=== PATIENT | female | born 1950 | race Caucasian/White ===

== ENCOUNTER 2022-11-07 13:09 | Outpatient (CLI) | payer MEDICARE, MEDICAID ==
[2022-11-07 15:03] LABS: BASOPHILS % (AUTO) 0.3 % (0-1); EOSINOPHILS # (AUTO) 0.1 X10'3 (0-0.9); EOSINOPHILS % (AUTO) 0.7 % (0-6); LYMPHOCYTES # (AUTO) 1.9 X10'3 (1.1-4.8); LYMPHOCYTES % (AUTO) 24.2 % (21-51); MEAN CORPUSCULAR HEMOGLOBIN 31.8 PG (27.0-31.0); MEAN CORPUSCULAR HGB CONC 33.4 g/dL (33.0-36.5); MEAN CORPUSCULAR VOLUME 95.1 FL (78-98); MEAN PLATELET VOLUME 6.6 FL (7.4-10.4); MONOCYTES # (AUTO) 0.7 X10'3 (0-0.9); MONOCYTES % (AUTO) 9.1 % (2-12); NEUTROPHILS # (AUTO) 5.2 X10'3 (1.8-7.7); NEUTROPHILS % (AUTO) 65.7 % (42-75); PRE OP HEMATOCRIT 41.7 % (35.0-45.0); PRE OP HEMOGLOBIN 13.9 g/dL (12.0-16.0); PRE OP PLATELET COUNT 268 X10'3 (140-440); RED BLOOD COUNT 4.38 X10'6 (4.20-5.60); RED CELL DISTRIBUTION WIDTH 14.2 % (11.5-14.5)
[2022-11-07 15:14] LABS: ALBUMIN 4.2 G/DL (3.4-5.0); ALBUMIN/GLOBULIN RATIO 1.1 (1.1-1.5); ALKALINE PHOSPHATASE 86 IU/L (46-116); BLOOD UREA NITROGEN 11 MG/DL (7-18); BUN/CREATININE RATIO 17.7 (10.0-20.0); CHLORIDE 97 MMOL/L (99-107); CREATININE 0.62 MG/DL (0.40-0.90); PRE OP ALT 22 U/L (30-65); PRE OP ANION GAP 14 (8-16); PRE OP AST 28 U/L (10-37); PRE OP BILIRUB, TOTAL 0.4 MG/DL (0.0-1.0); PRE OP GLUCOSE 82 MG/DL (70-104); PRE OP POTASSIUM 4.2 MMOL/L (3.4-5.1); PRE OP SODIUM 137 MMOL/L (135-145); TOTAL CARBON DIOXIDE 25.9 MMOL/L (24-32); TOTAL PROTEIN 8.1 G/DL (6.4-8.2); eGFR > 90 ML/MIN
[2022-11-07] MEDS ORDERED: TRAM50TA2 PO (15:47)
[2022-11-07] MEDS ORDERED: LORA-268 PO (15:47)
[2022-11-07] MEDS ORDERED: GABA300C PO (15:47)
[2022-11-07] MEDS ORDERED: METO-384 PO (15:47)
== END 2022-11-07 23:59 | disposition home or self-care (01) ==
LOC: LAB 13:09 → EDSTATUS 11-09 13:15
PROVIDERS: ATTEND Orthopaedic Surgery
DX: S42.202A Unspecified fracture of upper end of left humerus, initial encounter for closed fracture (principal); M25.512 Pain in left shoulder; X58.XXXA Exposure to other specified factors, initial encounter; Y93.89 Activity, other specified; Y92.89 Other specified places as the place of occurrence of the external cause; Y99.8 Other external cause status
CPT/HCPCS: 36415; 71046; 80053; 85025; 86885; 86900; 86901; 87081

== ENCOUNTER 2023-04-05 15:48 | Emergency (ER) | payer MEDICARE, MEDICAID ==
[~2023-04-05] VITALS: Ht 152.4 cm; Wt 77.3 kg
[~2023-04-05 15:48] MED LIST: GABA300C PO; LORA-268 PO; METO-384 PO; TRAM50TA2 PO
[2023-04-05 18:22] VITALS: TEMP 98.4
[2023-04-05] MEDS ORDERED: normal saline 1000ml 1,000 ML IV ONE ×2 (18:40)
[2023-04-05 19:01] LABS: BASOPHILS % (AUTO) 0.6 % (0-1); EOSINOPHILS % (AUTO) 0.5 % (0-6); HEMATOCRIT 37.4 % (35.0-45.0); HEMOGLOBIN 12.7 g/dl (12.0-16.0); LYMPHOCYTES # (AUTO) 2.2 X10'3 (1.1-4.8); LYMPHOCYTES % (AUTO) 26.8 % (21-51); MEAN CORPUSCULAR HEMOGLOBIN 31.7 PG (27.0-31.0); MEAN CORPUSCULAR HGB CONC 33.9 g/dL (33.0-36.5); MEAN CORPUSCULAR VOLUME 93.6 FL (78-98); MEAN PLATELET VOLUME 6.5 FL (7.4-10.4); MONOCYTES # (AUTO) 0.4 X10'3 (0-0.9); MONOCYTES % (AUTO) 5.4 % (2-12); NEUTROPHILS # (AUTO) 5.4 X10'3 (1.8-7.7); NEUTROPHILS % (AUTO) 66.7 % (42-75); PLATELET COUNT 229 X10'3 (140-440); RED CELL DISTRIBUTION WIDTH 14.7 % (11.5-14.5); WHITE BLOOD COUNT 8.1 X10'3 (4.5-11.0)
[2023-04-05 19:13] LABS: ALANINE AMINOTRANSFERASE 48 U/L (12-78); ALBUMIN 3.4 G/DL (3.4-5.0); ALKALINE PHOSPHATASE 107 IU/L (46-116); ANION GAP 13 (8-16); ASPARTATE AMINO TRANSFERASE 67 U/L (10-37); BILIRUBIN,TOTAL 0.3 MG/DL (0.1-1.0); BLOOD UREA NITROGEN 4 MG/DL (7-18); BUN/CREATININE RATIO 7.1 (10.0-20.0); CALCIUM 8.7 MG/DL (8.5-10.1); CHLORIDE 101 MMOL/L (99-107); CREATININE 0.56 MG/DL (0.40-0.90); GLUCOSE 75 MG/DL (70-104); SODIUM 139 MMOL/L (135-145); TOTAL CARBON DIOXIDE 24.9 MMOL/L (24-32); TOTAL PROTEIN 6.8 G/DL (6.4-8.2); eCRCL 65 ML/MIN; eGFR > 90 ML/MIN
[2023-04-05] MEDS ORDERED: morphine 10mg/ml inj. IV ONE (19:25)
[2023-04-05 21:56] VITALS: BP 147/75; PULSE 99; RESP 18; O2SAT 93
== END 2023-04-05 22:06 | disposition home or self-care (01) ==
LOC: ER 15:48
DX: F10.129 Alcohol abuse with intoxication, unspecified (principal); I10 Essential (primary) hypertension; K21.9 Gastro-esophageal reflux disease without esophagitis; G89.29 Other chronic pain; Z79.899 Other long term (current) drug therapy; Y90.9 Presence of alcohol in blood, level not specified
CPT/HCPCS: 36415; 80053; 85025; 96360; 99284; J7030

== ENCOUNTER → 2024-07-24 | Outpatient (CLI) | payer MEDICARE, MEDICAID ==
[~2024-07-24] MED LIST changes: +ASPI-1071 PO; +FAMO20TA8 PO; +ROSU20TA98 PO
--- NOTE | 2024-07-24 13:43 | RADIOLOGY REPORT ---
CLINICAL INDICATION: 73 years old, Female; PAIN IN LEFT SHOULDER. COMPARISON: Chest radiograph from 08/23/2023. TECHNIQUE: Multiplanar, multisequence MRI of the left shoulder was performed without contrast. Contrast: None FINDINGS: Glenohumeral joint: There is abnormal appearance of the glenohumeral joint. This is characterized by significant partial loss of the anterior surface of the humeral head and deformity of the remaining humeral head which remains articulated with the glenoid which is subluxated slightly posteriorly. The re is a glenohumeral joint effusion containing multiple ossified and non ossified intra-articular bod ies. Acromioclavicular joint: The acromioclavicular joint is narrowed with capsular hypertrophy. There i s a type 2 acromion. Rotator cuff and bursae: There is supraspinatus tendinosis. Teres minor, subscapularis and infraspina tus appear to be intact. There is no regional muscle atrophy. No fluid distention of the subacro mial subdeltoid bursa. Biceps tendon and glenoid labrum: The long head biceps tendon is located within the bicipital groove and intact. Complete degeneration and chronic tear of the entire labrum. IMPRESSION: 1. Abnormal morphology / significant partial resorption of the left humeral head which is chronic and similar to prior chest radiograph from 08/23/2023. There is a complex glenohumeral joint effusion c ontaining multiple intra-articular bodies. This may represent severe synovitis. Correlate for any hi story of prior trauma or other insult. There is no soft tissue inflammatory changes to suggest infect ious etiology. However, tissue sampling of the joint effusion may be performed as clinically warrant ed to exclude infection, inflammatory arthropathy such as rheumatoid arthritis or other etiologies. 2. No full-thickness rotator cuff tear. 3. AC joint arthrosis.
== END | disposition home or self-care (01) ==
LOC: MRI02 10:00
PROVIDERS: ATTEND Nurse Practitioner Occupational Health
DX: S43.492A Other sprain of left shoulder joint, initial encounter (principal); M19.012 Primary osteoarthritis, left shoulder; M25.512 Pain in left shoulder; M25.412 Effusion, left shoulder; X58.XXXA Exposure to other specified factors, initial encounter; Y93.89 Activity, other specified; Y92.89 Other specified places as the place of occurrence of the external cause; Y99.8 Other external cause status
CPT/HCPCS: 73221

== ENCOUNTER 2024-12-02 11:09 | Outpatient (CLI) | payer MEDICARE, MEDICAID ==
--- NOTE | 2024-12-03 04:44 | RADIOLOGY REPORT ---
CLINICAL INDICATION: PAIN IN LEFT SHOULDER TECHNIQUE: Noncontrast CT of the left shoulder was performed. Sagittal and coronal reformatted images are provided. COMPARISON: MR MRI UPPER EXTREMITY LEFT on DOS: 07/24/24 CT Dose: CTDI volume is 19 mGy. Dose-length product is 374.9 mGy*cm FINDINGS: There is deformity of the left humeral head which is chronic and similar to prior MRI from July 2024 . 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 There is fracture nonunion at the humeral diaphysis/humeral head junction. No cortical erosion . There is glenohumeral joint effusion and synovial thickening. Old left clavicular fracture. No acut e osseous abnormality. Regional muscles are normal in bulk and attenuation. IMPRESSION: 1. 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 No acute osseous abnormality. Left glenohumeral joint effusion and synovial thickening. All CT scans at this medical facility are performed using dose modulation techniques as appropriate t o a performed exam including the following: Automated exposure control was utilized; adjustment of th e MA and/or KV according to patient size; and use of iterative reconstruction technique.
== END 2024-12-02 23:59 | disposition home or self-care (01) ==
LOC: RAD 11:09
PROVIDERS: ATTEND Pediatrics Sports Medicine
DX: S42.201K Unspecified fracture of upper end of right humerus, subsequent encounter for fracture with nonunion (principal); M19.112 Post-traumatic osteoarthritis, left shoulder; M21.922 Unspecified acquired deformity of left upper arm; M25.512 Pain in left shoulder; X58.XXXA Exposure to other specified factors, initial encounter; Y93.89 Activity, other specified; Y92.89 Other specified places as the place of occurrence of the external cause; Y99.8 Other external cause status
CPT/HCPCS: 73200

== ENCOUNTER 2024-12-13 18:57 | Emergency (ER) | payer MEDICARE, MEDICAID ==
[~2024-12-13] VITALS: Ht 152.4 cm; Wt 54.5 kg
[~2024-12-13 18:57] MED LIST changes: +CITA-178 PO; +DICL75TA5 PO; +MEMA10TA22 PO; +NAPR-56 PO
--- NOTE | 2024-12-13 19:23 | Physician Documentation ---
History of Present Illness ~ Chief Complaint: Chest Wall Pain Stated Complaint: CP Time Seen by MD: 19:15 Primary Medical Doctor: dr clarice COLLINS This is a 74-year-old female who has a mild history of dementia, presents for evaluation of chest pain. As a matter of fact tumor my interpreted the patient did not remember why she got to the hospital, did not remember who called the ambulance. She states when a prompted that she has been experiencing substernal pressure, that lasted minutes at a time, was waxing and waning. It was not accompanied by shortness a breath. It isn't exertional, it isn't positional. She did not attempt to treat it. She feels that maybe her caregiver called the ambulance. She only just got discharged from the hospital today. At the time of my examination she denies any somatic complaints whatsoever. There was no concern for tobacco, alcohol or illicit substances use. Record reviewed. Patient has been admitted for evaluation of chest pain. She has a normal stress test and normal echo with a EF of 60-65%. Medication Reconciliation Allergies: Coded Allergies: No Known Allergies (Unverified , 12/13/24) Scheduled Citalopram Hydrobromide* (Celexa*), 1 TAB PO DAILY, (Reported) Famotidine (Famotidine), 1 TAB PO BID, (Reported) Gabapentin (Neurontin), 300 MG PO TID, (Reported) Memantine HCl (Memantine HCl), 1 TAB PO Q12H, (Reported) Metoprolol Succinate (Metoprolol Succinate), 1 TAB PO DAILY, (Reported) Rosuvastatin Calcium (Rosuvastatin Calcium), 1 TAB PO HS Scheduled PRN Lorazepam (Ativan), 1 TAB PO Q6H PRN for for anxiety/agitation, (Reported) Tramadol Hcl (Tramadol Hcl), 1 TAB PO Q6H PRN for pain, (Reported) Discontinued Medications Aspirin (Ecotrin*), 1 TAB PO DAILY Discontinued Reason: patient no longer taking Diclofenac Sodium (Diclofenac Sodium), 1 TAB PO Q12H, (Reported) Naproxen (Naproxen), 1 TAB PO Q12H, (Reported) Past Medical History Past Medical History: Dementia, High Cholesterol, Hypertension, Valve Insuffciency, GERD, Chronic Pain Past Surgical History: heart valve surgery Alcohol Use: Occasionally Drug Use: none Lives with: Alone Lives In: Home Occupation: retired Review of Systems ROS 10 point review of systems was performed and unless noted above in HPI is negative for acute process/complaint. Physical Exam Vital Signs: Temperature: 99.7, Source: Oral, Heart Rate: 73, Respiratory Rate: 15, BP: 138/67, Pulse Oximetry: 94, Weight: 54.550 Oxygen Flow Rate: 0 Physical Exam GENERAL: Awake, pleasantly confused, GCS 14 V4, no apparent distress, non-toxic appearing, answers questions to the best of her ability, follows commands appropriately. Examined in bed 10. HEENT: Atraumatic, normocephalic, pupils equal, extraocular muscles intact, sclerae anicteric, mucus membranes moist, oropharynx is clear, no stridor. NECK: supple, full active range of motion, trachea midline, no thyromegaly, no lymphadenopathy, no JVD. CARDIOVASCULAR: regular rate/rhythm, no murmurs/gallops/rubs, Pulses are 2+ in all extremities and symmetric. Capillary refill less than 2 seconds. PULMONARY: Nonlabored, good air movement ,no respiratory distress, speaking in full sentences, clear to auscultation bilaterally, no wheezing, no ronchi, no rales, no accessory muscle use. GASTROINTESTINAL: Soft, non-tender, non-distended, normal active bowel sounds, no organomegaly, no pulsatile masses, no CVA tenderness. NEUROLOGIC: Lucid with baseline mental status. Normal facial symmetry. Moves all extremities symmetrically and with purpose. No truncal ataxia. Speech is fluid without evidence of dysarthria or aphasia, no focal deficits appreciated. MUSCULOSKELETAL: There is full range of motion of all extremities. There is no joint pain or joint swelling or joint erythema. There is no muscle pain or tenderness or swelling. EXTREMITIES: warm, well-perfused, no cyanosis, no clubbing, no edema, no acute deformities. Skin: warm, dry, no rashes or lesions, no jaundice, no petechiae orpurpura. No ecchymosis. PSYCHIATRIC: Normal affect, normal insight, normal concentration. Focused exam: [] Progress Results/Orders Results/Orders Orders - BAO NORRIS DO Chest,Single View (12/13/24 19:23) Hs Troponin I W Calculations (12/13/24 21:23) Completed Orders - BAO NORRIS DO Electrocardiogram (12/13/24 19:23) Cbc/Diff (12/13/24 19:23) D-Dimer (12/13/24 19:23) Lipase (12/13/24 19:23) Chest,Single View (12/13/24 19:23) PBNP (12/13/24 19:23) MG (12/13/24 19:23) CMP (12/13/24 19:23) Hs Troponin I W Calculations (12/13/24 19:23) Iohexol 350mg/Ml 100ml (Omnipaque 350mg/ (12/13/24 19:35) Vital Signs 12/13/24 12/13/24 12/13/24 19:01 19:47 19:48 Temp 99.7 99.7 Pulse 73 68 Resp 15 16 10 B/P (MAP) 138/67 133/61 (85) Pulse Ox 94 95 O2 Flow Rate 0 0 Laboratory Tests Test 12/13/24 19:07 White Blood Count 6.4 Red Blood Count 3.87 L Hemoglobin 11.2 L Hematocrit 33.7 L Mean Corpuscular Volume 87.0 Mean Corpuscular Hemoglobin 29.0 Mean Corpuscular Hemoglobin Concent 33.4 Red Cell Distribution Width 13.7 Platelet Count 209 Mean Platelet Volume 7.3 L Neutrophils (%) (Auto) 71.2 Lymphocytes (%) (Auto) 20.9 L Monocytes (%) (Auto) 6.1 Eosinophils (%) (Auto) 1.3 Basophils (%) (Auto) 0.5 Neutrophils # (Auto) 4.6 Lymphocytes # (Auto) 1.3 Monocytes # (Auto) 0.4 Eosinophils # (Auto) 0.1 Basophils # (Auto) 0.0 CBC Comment D-Dimer 0.66 H D-Dimer Comment Sodium Level 139 Potassium Level 3.7 Chloride Level 104 Carbon Dioxide Level 27.6 Anion Gap 7 L Blood Urea Nitrogen 12 Creatinine 0.77 Estimated GFR/1.73 m2 73 BUN/Creatinine Ratio 15.6 Glucose Level 134 H Calcium Level 9.3 Magnesium Level 1.8 Total Bilirubin 0.3 Aspartate Amino Transf (AST/SGOT) 22 Alanine Aminotransferase (ALT/SGPT) 20 Alkaline Phosphatase 65 Troponin I High Sensitivity 18 Troponin I High Sens Percent Delta 80 Troponin I Hi Sens Absolute Change 8 Pro-B-Type Natriuretic Peptide 464 H Total Protein 6.9 Albumin 3.8 Globulin 3.1 Albumin/Globulin Ratio 1.2 Lipase 31 Chemistry Comments EKG/XRAY/CT/US/VASC/MRI EKG : Additional Comment EKG was obtained and interpreted by myself shows sinus rhythm of 71, normal MS interval, wide QRS with a left bundle, no QT prolongation, normal axis, no STEMI. ST depression in two, AVF, V5 and V6. Medical Decision Making Findings Facility Status: ED Holds, E process The plan was discussed with the patient, who demonstrates clear understanding of the plan and is in agreement with the plan unless otherwise noted in the chart. All questions have been answered, all concerns were addressed unless otherwise documented. I was available throughout their ED stay for frequent reassessment and questions. Differential Diagnoses (considered and possible or likely): [Differential diagnosis considered includes chest wall pain, pleurisy, pneumonia, pulmonary embolus, GERD, esophagitis, gastritis, anxiety, stress reaction, costochondritis, acute coronary syndrome, aortic dissection, pericarditis, myocarditis, or pneumothorax.] ??Differential Diagnoses (considered and unlikely, not requiring evaluation currently): [Aortic/great vessels dissection was considered but it is unlikely based on absence of ripping, tearing, migratory chest pain, absence of syncope or focal neurologic deficits, physical examination indicating equal and symmetric pulses.] MDM Data Please see [facility] for the following: Independent Historians and external Records Review. Historian: [Patient] Independent Historians: ?[Record review] Medication Management: [Reviewed medication list] Social History and determinants: [Reviewed] Please see the body of the note for the following: Any independent interpretations of ECG, imaging studies. All vitals signs/haemodynamics, ordered tests were independently reviewed and interpreted by myself. Nursing triage complaint and vitals reviewed, additional nursing notes were reviewed as available and I agree unless otherwise noted or documented in contradiction in the chart Vital Signs: Independently reviewed Labs: Independently interpreted Imaging: Independently interpreted Old Medical Records: Independently reviewed, see [facility] for relevant summary and information Pulse Oximetry: [94%] interpreted as [normal on room air] by me [Intake Manager: [Regular Rate, Regular rhythm, no ectopy, NSR] reviewed and interpreted by me] Additionally notably showing: [Hemodynamics reviewed. The patient isn't febrile, not tachycardic, no evidence of hypotension respiratory distress. CBC is normal, no leukocytosis, no anemia, normal platelets. Coagulation panel shows D-dimer of 0.66, while it is elevated, it is age adjusted normal for this 74-year-old female. Chemistry was obtained and it is unremarkable. Troponin within normal limit. BNP slightly elevated not meeting criteria for CHF exacerbation. It is stable from yesterday. Chest x-ray was obtained showing no acute cardiopulmonary process.] Tests considered but not ordered include: [CT angiography has been considerably her troponin is age adjusted normal] Social Determinants of Health Impact: Patient was evaluated in [facility] [place] to healthcare due to below par ratio of patient to medical providers. [] Comorbid Conditions Impacting Present Evaluation and Care/Treatment: [Multiple, see list] Management Discussions with other Healthcare Providers: [None] Treatment and Disposition Medication Management (Given or considered): []. See EMR for details Consideration for Hospitalization/Escalation/Deescalation of Care: Admission for observation has been considered, however patient does not desire to be admitte d, she wants to go home, and she just had negative stress test and echo yesterday. ?ED Course:?[No clinical deterioration] ?Shared decision making:?[Patient is hemodynamically stable for discharge home with follow with their primary care provider. [ ] Specific and cautious return precautions provided and discussed with full understanding. Any incidental findings were also discussed and follow up recommendations given. [] All questions answered. Patient/family were able to verbalize back return precaution s. Patient/family agree to plan. Copies of imaging and laboratory studies were provided.] Code status:?FULL Please see the full Electronic Medical Record for full details of nursing documentation, medications list, other records of complete past medical history and conditions, vital signs, laboratory studies, and any radiologic study interpretations by radiologists. Portions of this note were completed using [email or web address] dictation software and as a result there may exist minor errors in spelling. I have reviewed elements of past family and social history and agree as included in note. Departure Disposition: 01 HOME / SELF CARE / HOMELESS Impression: Primary Impression: Chest pain Condition: Improved Discharge Instructions: Chest Pain Observation Referrals: NO PRIMARY CARE PROVIDER (PCP) Education Educated: Patient Educated regarding: diagnosis, treatment, prognosis, need for follow up Signature Scribe Signature: No scribe Attestation: Date: Dec 13, 2024 Time: 19:23 This note accurately reflects clinical decisions, work performed by myself, Bao Norris, BAO MURILLO DO Dec 13, 2024 19:23
--- NOTE | 2024-12-13 19:24 | ELECTROCARDIOGRAPH REPORT ---
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
[2024-12-13 19:45] LABS: MEAN PLATELET VOLUME 7.3 FL (7.4-10.4); RED CELL DISTRIBUTION WIDTH 13.7 % (11.5-14.5)
[2024-12-13 19:48] VITALS: BP 133/61; PULSE 68; RESP 10; TEMP 99.7; O2SAT 95
--- NOTE | 2024-12-13 19:52 | RADIOLOGY REPORT ---
EXAM: DI CHEST,SINGLE VIEW HISTORY: Chest pain TECHNIQUE: 1 view of the chest COMPARISON: DI CHEST,SINGLE VIEW on DOS: 12/12/24 FINDINGS/IMPRESSION: LUNGS: No pleural effusion, consolidation, or pneumothorax . Question peripheral interstitial edema. MEDIASTINUM: Normal cardiac size. Sternotomy wires. Surgical clips in the left lower neck to superior mediastinum. BONES: Significant chronic fracture deformity and subsequent osseous resorption versus sequelae of prior resection of the left proximal humerus OTHER: None
[2024-12-13 19:54] LABS: CREATININE 0.77 MG/DL (0.40-0.90); TOTAL CARBON DIOXIDE 27.6 MMOL/L (24-32); eCRCL 46 ML/MIN; eGFR 73 ML/MIN
[2024-12-13 20:02] LABS: PRO BRAIN NATRIURETIC PEPTIDE 464 PG/ML (0-125)
== END 2024-12-13 21:49 | disposition home or self-care (01) ==
LOC: ER 18:57
DX: R07.9 Chest pain, unspecified (principal); R06.02 Shortness of breath; E78.00 Pure hypercholesterolemia, unspecified; F03.90 Unspecified dementia, unspecified severity, without behavioral disturbance, psychotic disturbance, mood disturbance, and anxiety; K21.9 Gastro-esophageal reflux disease without esophagitis; I10 Essential (primary) hypertension
CPT/HCPCS: 36415; 71045; 80053; 83690; 83735; 83880; 84484; 85025; 85379; 93005; 99285; Q9967